=== PATIENT | female | born 1995 | race Caucasian/White ===

== ENCOUNTER 2022-04-15 10:27 | Observation (INO) | payer BC, MEDICAID ==
[~2022-04-15] VITALS: Ht 157.5 cm; Wt 61.2 kg
[2022-04-15] MEDS ORDERED: TERBUTALINE SULFATE 1 MG/ML VIAL ONE (10:41)
[2022-04-15] MEDS ORDERED: TERBUTALINE SULFATE 1 MG/ML VIAL SUBCUT ONE (10:45)
[2022-04-15] MEDS ORDERED: MORPHINE SULFATE 10 MG/ML VIAL IM ONE (10:45)
[2022-04-15 11:27] LABS: CALCIUM 8.1 mg/dL (8.4-11.0); CREATININE 0.66 mg/dL (0.55-1.30)
[2022-04-15 11:31] LABS: ALBUMIN 2.4 g/dL (3.4-4.8); TOTAL BILIRUBIN 0.3 mg/dL (0.0-1.0)
[2022-04-15 11:32] LABS: BASOPHILS % (AUTO) 0.3 % (0.0-2.0); EOSINOPHILS # (AUTO) 0.1 K/uL (0.0-0.4); EOSINOPHILS % (AUTO) 0.4 % (0.0-4.0); HEMOGLOBIN 11.6 g/dL (12.0-16.0); LYMPHOCYTES # (AUTO) 4.1 K/uL (1.0-5.5); LYMPHOCYTES % (AUTO) 25.7 % (20.5-51.5); MEAN CORPUSCULAR HEMOGLOBIN 31 pg (27-31); MEAN CORPUSCULAR HGB CONC 33 % (32-36); MEAN CORPUSCULAR VOLUME 94 fL (79.0-98.0); MONOCYTES # (AUTO) 0.8 K/uL (0.0-1.0); NEUTROPHILS # (AUTO) 10.8 K/uL (1.8-7.7); NEUTROPHILS % (AUTO) 68.6 % (40.0-70.0); PLATELET COUNT (AUTO) 340 K/uL (130-430); RED BLOOD CELL COUNT(AUTO) 3.74 MIL/uL (4.2-6.2); RED CELL DISTRIBUTION WIDTH 13.6 % (9.0-15.0); WHITE BLOOD COUNT (AUTO) 15.8 K/uL (4.8-10.8)
[2022-04-15 11:54] LABS: BILIRUBIN,URINE NEGATIVE (NEGATIVE); BLOOD, URINE NEGATIVE (NEGATIVE); COLOR,URINE YELLOW (YELLOW); GLUCOSE,URINE NEGATIVE (NEGATIVE); KETONES,URINE NEGATIVE (NEGATIVE); LEUKOCYTE ESTERASE ,URINE 3+ (NEGATIVE); NITRITE, URINE NEGATIVE (NEGATIVE); PROTEIN URINE NEGATIVE (NEGATIVE); UROBILINOGEN,URINE 0.2 (0.2-1.0)
[2022-04-15] MEDS: LR 500 ML IV SCH ×2 (11:54→19:52)
[2022-04-15 11:59] LABS: CLARITY/URINE HAZY (CLEAR)
[2022-04-15] MEDS ORDERED: ONDANSETRON HCL 4 MG/2 ML VIAL ONE (12:08)
[2022-04-15 12:45] LABS: BACTERIA,URINE MODERATE /HPF (None Seen); MUCUS,URINE 2+ /LPF (None Seen)
[2022-04-15] MEDS ORDERED: ceFAZolin SODIUM 2 GM VIAL ONE (13:17)
[2022-04-15] MEDS ORDERED: ceFAZolin SODIUM 2 GM in D5W 100 ML IV ONE (13:30)
[2022-04-15] MEDS ORDERED: NIFEdipine (O.B. USE ONLY) 10 MG CAPSULE PO SCH (16:00)
[2022-04-15] MEDS: NIFEdipine (O.B. USE ONLY) 10 MG CAPSULE PO SCH ×3 (16:05→23:53)
[2022-04-15] MEDS ORDERED: METOCLOPRAMIDE HCL 10 MG/2 ML VIAL IVP SCH (18:00)
[2022-04-15] MEDS: ACETAMINOPHEN 325 MG TABLET PO PRN (18:05)
[2022-04-15] MEDS: CEFAZOLIN 1 GM IVPB PREMIX 50 ML IV SCH (21:13)
[2022-04-15] MEDS ORDERED: ceFAZolin SODIUM 1 GM in D5W 100 ML IV SCH (22:00)
[2022-04-16] MEDS: ONDANSETRON HCL 4 MG/2 ML VIAL IVP PRN ×2 (01:59→09:38)
[2022-04-16] MEDS: ACETAMINOPHEN 325 MG TABLET PO PRN ×2 (02:07→10:21)
[2022-04-16] MEDS: NIFEdipine (O.B. USE ONLY) 10 MG CAPSULE PO SCH ×5 (04:11→19:38)
[2022-04-16] MEDS: CEFAZOLIN 1 GM IVPB PREMIX 50 ML IV SCH ×2 (04:11→14:08)
[2022-04-16] MEDS: LR 500 ML IV SCH (06:14)
[2022-04-16 08:07] LABS: BILIRUBIN,URINE NEGATIVE (NEGATIVE); BLOOD, URINE NEGATIVE (NEGATIVE); CLARITY/URINE CLEAR (CLEAR); COLOR,URINE YELLOW (YELLOW); GLUCOSE,URINE NEGATIVE (NEGATIVE); KETONES,URINE NEGATIVE (NEGATIVE); LEUKOCYTE ESTERASE ,URINE 1+ (NEGATIVE); NITRITE, URINE NEGATIVE (NEGATIVE); PROTEIN URINE NEGATIVE (NEGATIVE); UROBILINOGEN,URINE 0.2 (0.2-1.0)
[2022-04-16 10:52] LABS: BACTERIA,URINE RARE /HPF (None Seen); RBC,URINE 0-3 /HPF (0-3)
[2022-04-16] MEDS ORDERED: BETAMET ACET/BETAMET NA PH 30 MG/5 ML VIAL IM SCH (18:30)
== END 2022-04-16 19:50 | disposition home or self-care (01) ==
LOC: SPU 10:27
PROVIDERS: ADMIT Specialist; ATTEND Specialist
DX: O62.9 Abnormality of forces of labor, unspecified (principal); O21.2 Late vomiting of pregnancy; Z3A.32 32 weeks gestation of pregnancy
CPT/HCPCS: 96361; 96365; 96366 ×2; 96372 ×2; 80053; 81000 ×2; 85025; 87086; 36415; 96375; 96376; 76815; J0690 ×2; J2405 ×2; J3105; J2270; J7060; J7120 ×2; G0378 ×2; G0379; J7030; J0702

== ENCOUNTER 2022-04-17 09:51 | Observation (INO) | payer BC, MEDICAID ==
[~2022-04-17] VITALS: Ht 157.5 cm; Wt 61.2 kg
[2022-04-17] MEDS ORDERED: D5LR 1,000 ML IV SCH (10:30)
[2022-04-17] MEDS ORDERED: METOCLOPRAMIDE HCL 10 MG/2 ML VIAL IVP ONE (10:30)
[2022-04-17] MEDS ORDERED: MORPHINE SULFATE 10 MG/ML VIAL IVP ONE ×2 (10:30→18:15)
[2022-04-17] MEDS: NIFEdipine (O.B. USE ONLY) 10 MG CAPSULE PO SCH ×4 (11:20→23:27)
[2022-04-17 11:48] LABS: BASOPHILS % (AUTO) 0.1 % (0.0-2.0); HEMATOCRIT 32.5 % (36-48); LYMPHOCYTES # (AUTO) 1.9 K/uL (1.0-5.5); LYMPHOCYTES % (AUTO) 13.6 % (20.5-51.5); MEAN CORPUSCULAR HEMOGLOBIN 32 pg (27-31); MEAN CORPUSCULAR HGB CONC 34 % (32-36); MEAN CORPUSCULAR VOLUME 94 fL (79.0-98.0); MONOCYTES # (AUTO) 0.4 K/uL (0.0-1.0); NEUTROPHILS # (AUTO) 11.7 K/uL (1.8-7.7); NEUTROPHILS % (AUTO) 83.3 % (40.0-70.0); PLATELET COUNT (AUTO) 303 K/uL (130-430); RED BLOOD CELL COUNT(AUTO) 3.46 MIL/uL (4.2-6.2); RED CELL DISTRIBUTION WIDTH 13.7 % (9.0-15.0)
[2022-04-17 11:51] LABS: CALCIUM 8.1 mg/dL (8.4-11.0); CREATININE 0.68 mg/dL (0.55-1.30)
[2022-04-17 11:56] LABS: ALBUMIN 2.2 g/dL (3.4-4.8); TOTAL BILIRUBIN 0.4 mg/dL (0.0-1.0)
[2022-04-17] MEDS ORDERED: BETAMET ACET/BETAMET NA PH 30 MG/5 ML VIAL IM ONE (16:15)
[2022-04-17] MEDS ORDERED: ceFAZolin SODIUM 2 GM VIAL ONE (18:16)
[2022-04-17] MEDS: ceFAZolin SODIUM 2 GM in D5W 100 ML IV SCH (18:27)
[2022-04-18] MEDS: ceFAZolin SODIUM 2 GM in D5W 100 ML IV SCH ×2 (02:29→10:33)
[2022-04-18] MEDS: NIFEdipine (O.B. USE ONLY) 10 MG CAPSULE PO SCH ×3 (03:29→13:04)
[2022-04-18] MEDS ORDERED: HYDROcodone/ACETAMIN 5-325 MG TAB (NORCO/ VICODIN) PO ONE (11:00)
[2022-04-18] MEDS ORDERED: METOCLOPRAMIDE HCL 10 MG/2 ML VIAL IVP ONE (11:00)
[2022-04-18] MEDS ORDERED: NALOXONE HCL 0.4 MG/ML AMP (NARCAN) IVP PRN (11:00)
== END 2022-04-18 18:10 | disposition home or self-care (01) ==
LOC: SPU 09:51
PROVIDERS: ADMIT Specialist; ATTEND Specialist
DX: O62.9 Abnormality of forces of labor, unspecified (principal); Z3A.32 32 weeks gestation of pregnancy
CPT/HCPCS: 96365; 96366 ×2; 96372; 96375; 96376 ×2; 80053; 81002; 85025; 36415; 87426; J2765 ×2; J2270; J7120 ×2; J7060; G0378 ×2; J0702

== ENCOUNTER 2022-05-01 09:46 | Observation (INO) | payer BC, MEDICAID ==
[~2022-05-01] VITALS: Ht 157.5 cm; Wt 61.2 kg
[2022-05-01] MEDS ORDERED: TERBUTALINE SULFATE 1 MG/ML VIAL ONE (09:52)
[2022-05-01] MEDS ORDERED: NIFEdipine (O.B. USE ONLY) 10 MG CAPSULE PO ONE ×4 (09:59→10:46)
[2022-05-01] MEDS ORDERED: ONDANSETRON HCL 4 MG/2 ML VIAL ONE (10:11)
[2022-05-01] MEDS ORDERED: CEFAZOLIN SOD 2 GM in D5W 50 ML IV ONE (10:15)
[2022-05-01] MEDS ORDERED: ACETAMINOPHEN I.V. 1000 MG 100 ML IV ONE ×2 (10:15→16:00)
[2022-05-01] MEDS ORDERED: ONDANSETRON HCL 4 MG/2 ML VIAL IVP PRN (10:15)
[2022-05-01] MEDS ORDERED: LR 500 ML IV ONE (10:15)
[2022-05-01] MEDS ORDERED: ceFAZolin SODIUM 2 GM VIAL ONE (10:25)
[2022-05-01 11:55] LABS: BASOPHILS % (AUTO) 0.2 % (0.0-2.0); EOSINOPHILS # (AUTO) 0.1 K/uL (0.0-0.4); EOSINOPHILS % (AUTO) 0.3 % (0.0-4.0); HEMATOCRIT 35.7 % (36-48); HEMOGLOBIN 11.9 g/dL (12.0-16.0); LYMPHOCYTES # (AUTO) 1.3 K/uL (1.0-5.5); MEAN CORPUSCULAR HEMOGLOBIN 32 pg (27-31); MEAN CORPUSCULAR HGB CONC 34 % (32-36); MEAN CORPUSCULAR VOLUME 95 fL (79.0-98.0); MONOCYTES # (AUTO) 0.8 K/uL (0.0-1.0); MONOCYTES % (AUTO) 5.3 % (1.7-9.3); NEUTROPHILS # (AUTO) 13.7 K/uL (1.8-7.7); NEUTROPHILS % (AUTO) 86.2 % (40.0-70.0); PLATELET COUNT (AUTO) 304 K/uL (130-430); RED BLOOD CELL COUNT(AUTO) 3.77 MIL/uL (4.2-6.2); RED CELL DISTRIBUTION WIDTH 13.9 % (9.0-15.0); WHITE BLOOD COUNT (AUTO) 15.9 K/uL (4.8-10.8)
[2022-05-01 11:59] LABS: BILIRUBIN,URINE NEGATIVE (NEGATIVE); BLOOD, URINE NEGATIVE (NEGATIVE); CLARITY/URINE SL CLOUDY (CLEAR); COLOR,URINE YELLOW (YELLOW); GLUCOSE,URINE NEGATIVE (NEGATIVE); KETONES,URINE NEGATIVE (NEGATIVE); LEUKOCYTE ESTERASE ,URINE 2+ (NEGATIVE); NITRITE, URINE NEGATIVE (NEGATIVE); PH,URINE 7.5 (5.0-8.0); PROTEIN URINE NEGATIVE (NEGATIVE); UROBILINOGEN,URINE 0.2 (0.2-1.0)
[2022-05-01 12:19] LABS: ALBUMIN 2.5 g/dL (3.4-4.8); CALCIUM 8.9 mg/dL (8.4-11.0); CREATININE 0.53 mg/dL (0.55-1.30); TOTAL BILIRUBIN 0.3 mg/dL (0.0-1.0)
[2022-05-01] MEDS ORDERED: NALOXONE HCL 0.4 MG/ML AMP (NARCAN) IVP PRN ×2 (12:45→16:00)
[2022-05-01 12:49] LABS: BACTERIA,URINE FEW /HPF (None Seen); RBC,URINE 0-3 /HPF (0-3)
[2022-05-01] MEDS ORDERED: MORPHINE SULFATE 10 MG/ML VIAL IM ONE (13:00)
[2022-05-01 13:20] LABS: BARBITURATE, URINE NEGATIVE (NEG <=200); BENZODIAZEPINE, URINE NEGATIVE (NEG <=150); CANNABINOID, URINE NEGATIVE (NEG <=50); COCAINE, URINE NEGATIVE (NEG <=150); METHAMPHETAMINES SCREEN,URINE NEGATIVE (NEG <=500); URINE AMPHETAMINE NEGATIVE (NEG <=500); URINE METHADONE NEGATIVE (NEG <=200)
[2022-05-01 13:21] LABS: OPIATE, URINE NEGATIVE (NEG <=100); PHENCYCLIDINE SCREEN,URINE NEGATIVE (NEG <=25); UR TRICYCLIC ANTIDEPRESSANTS NEGATIVE (NEG <=300); URINE OXYCODONE SCREEN NEGATIVE (NEG <=100); URINE PROPOXYPHENE SCREEN NEGATIVE (NEG <=300)
[2022-05-01] MEDS ORDERED: TERBUTALINE SULFATE 1 MG/ML VIAL SUBCUT ONE (14:00)
[2022-05-01] MEDS: NIFEdipine (O.B. USE ONLY) 10 MG CAPSULE PO PRN ×2 (14:45→14:47)
[2022-05-01] MEDS ORDERED: HYDROcodone/ACETAMIN 5-325 MG TAB (NORCO/ VICODIN) PO ONE (16:00)
[2022-05-01] MEDS ORDERED: CEFAZOLIN SOD 1 GM in D5W 50 ML IV SCH (16:00)
[2022-05-01] MEDS: ceFAZolin SODIUM 1 GM in D5W 50 ML IV SCH (18:33)
[2022-05-01] MEDS: NIFEdipine (O.B. USE ONLY) 10 MG CAPSULE PO SCH ×2 (19:45→23:47)
[2022-05-01] MEDS ORDERED: ACETAMINOPHEN 325 MG TABLET PO PRN (20:00)
[2022-05-01] MEDS: ACETAMINOPHEN 325 MG TABLET PO PRN (20:20)
[2022-05-01] MEDS: LR 1,000 ML IV SCH (23:48)
[2022-05-02] MEDS: ACETAMINOPHEN 325 MG TABLET PO PRN ×3 (01:28→17:04)
[2022-05-02] MEDS: ceFAZolin SODIUM 1 GM in D5W 50 ML IV SCH ×3 (01:30→17:21)
[2022-05-02] MEDS: LR 1,000 ML IV SCH ×2 (03:58→20:27)
[2022-05-02] MEDS: NIFEdipine (O.B. USE ONLY) 10 MG CAPSULE PO SCH ×6 (03:59→19:52)
[2022-05-02] MEDS: NIFEdipine (O.B. USE ONLY) 10 MG CAPSULE PO PRN (14:04)
[2022-05-03] MEDS: NIFEdipine (O.B. USE ONLY) 10 MG CAPSULE PO SCH ×4 (00:16→16:07)
[2022-05-03] MEDS: ceFAZolin SODIUM 1 GM in D5W 50 ML IV SCH ×3 (01:23→17:21)
[2022-05-03] MEDS: LR 1,000 ML IV SCH ×2 (04:25→12:30)
[2022-05-03] MEDS ORDERED: NIFEdipine (O.B. USE ONLY) 10 MG CAPSULE PO ONE (08:30)
== END 2022-05-03 18:45 | disposition home or self-care (01) ==
LOC: SPU 09:46
PROVIDERS: ADMIT Specialist; ATTEND Specialist
DX: O98.513 Other viral diseases complicating pregnancy, third trimester (principal); U07.1 COVID-19; O60.03 Preterm labor without delivery, third trimester; Z3A.34 34 weeks gestation of pregnancy
CPT/HCPCS: 96361 ×3; 96365; 96366 ×3; 96372; 96376; 80307; 80053; 81000; 85025; 87086; 36415; 96368; 87491; 86592; 87426; J0690 ×3; J2405; J3105; J2270; J7060 ×3; G0378 ×3; J0131; J7120 ×2

== ENCOUNTER 2022-05-12 10:59 | Inpatient (IN) | payer BC, MEDICAID ==
[~2022-05-12] VITALS: Ht 157.5 cm; Wt 61.7 kg
[2022-05-12] MEDS ORDERED: LR 1,000 ML IV ONE (13:00)
[2022-05-12] MEDS ORDERED: TERBUTALINE SULFATE 1 MG/ML VIAL SUBCUT ONE (13:30)
[2022-05-12] MEDS ORDERED: BETAMET ACET/BETAMET NA PH 30 MG/5 ML VIAL IM ONE (16:15)
[2022-05-12] MEDS: NIFEdipine (O.B. USE ONLY) 10 MG CAPSULE PO SCH ×2 (17:10→21:07)
[2022-05-12] MEDS ORDERED: NIFEdipine (O.B. USE ONLY) 10 MG CAPSULE PO PRN (17:30)
[2022-05-12] MEDS ORDERED: TEMAZEPAM 15 MG CAPSULE PO PRN (21:30)
[2022-05-13] MEDS: NIFEdipine (O.B. USE ONLY) 10 MG CAPSULE PO SCH ×2 (01:08→04:49)
[2022-05-13] MEDS ORDERED: ACETAMINOPHEN 325 MG TABLET PO PRN (09:00)
[2022-05-13] MEDS ORDERED: NIFEdipine (O.B. USE ONLY) 10 MG CAPSULE PO ONE (12:45)
[2022-05-13] MEDS ORDERED: NIFEdipine (O.B. USE ONLY) 10 MG CAPSULE PO SCH (14:00)
[2022-05-13] MEDS ORDERED: BETAMET ACET/BETAMET NA PH 30 MG/5 ML VIAL IM ONE (16:43)
[2022-05-13 19:17] VITALS: BP_SYST 91
== END 2022-05-13 20:13 | disposition home or self-care (01) | DRG 833 ==
LOC: SPU 10:59 → OBSVTOIN 05-13 10:45
PROVIDERS: ADMIT Specialist; ATTEND Specialist
DX: O60.03 Preterm labor without delivery, third trimester (principal); Z3A.34 34 weeks gestation of pregnancy
CPT/HCPCS: G0378; J0702; J3105; J7120

== ENCOUNTER 2022-05-19 17:45 | Inpatient (IN) | payer BC, MEDICAID ==
[~2022-05-19] VITALS: Ht 157.5 cm; Wt 61.7 kg
[2022-05-19] MEDS ORDERED: NIFEdipine (O.B. USE ONLY) 10 MG CAPSULE PO ONE (18:21)
[2022-05-19] MEDS: NIFEdipine (O.B. USE ONLY) 10 MG CAPSULE PO SCH ×5 (18:44→22:56)
[2022-05-19 19:00] LABS: BASOPHILS % (AUTO) 0.2 % (0.0-2.0); EOSINOPHILS # (AUTO) 0.1 K/uL (0.0-0.4); EOSINOPHILS % (AUTO) 0.6 % (0.0-4.0); HEMATOCRIT 32.1 % (36-48); HEMOGLOBIN 10.9 g/dL (12.0-16.0); LYMPHOCYTES # (AUTO) 3.5 K/uL (1.0-5.5); MEAN CORPUSCULAR HEMOGLOBIN 32 pg (27-31); MEAN CORPUSCULAR HGB CONC 34 % (32-36); MEAN CORPUSCULAR VOLUME 93 fL (79.0-98.0); MONOCYTES # (AUTO) 0.9 K/uL (0.0-1.0); NEUTROPHILS # (AUTO) 7.7 K/uL (1.8-7.7); NEUTROPHILS % (AUTO) 63.2 % (40.0-70.0); PLATELET COUNT (AUTO) 285 K/uL (130-430); RED BLOOD CELL COUNT(AUTO) 3.45 MIL/uL (4.2-6.2); RED CELL DISTRIBUTION WIDTH 13.6 % (9.0-15.0); WHITE BLOOD COUNT (AUTO) 12.2 K/uL (4.8-10.8)
[2022-05-19] MEDS: LR 1,000 ML IV SCH (19:45)
[2022-05-19] MEDS ORDERED: ONDANSETRON HCL 4 MG/2 ML VIAL IVP PRN (20:45)
[2022-05-19] MEDS: TEMAZEPAM 15 MG CAPSULE PO SCH (22:10)
[2022-05-20] MEDS: LR 1,000 ML IV SCH (02:00)
[2022-05-20] MEDS ORDERED: ACETAMINOPHEN 500 MG TABLET PO PRN (02:15)
[2022-05-20] MEDS: NIFEdipine (O.B. USE ONLY) 10 MG CAPSULE PO SCH ×5 (04:47→21:15)
[2022-05-20] MEDS: TEMAZEPAM 15 MG CAPSULE PO SCH (21:15)
[2022-05-21] MEDS: NIFEdipine (O.B. USE ONLY) 10 MG CAPSULE PO SCH ×5 (01:47→19:59)
[2022-05-21] MEDS: LR 1,000 ML IV SCH ×2 (07:41→23:49)
[2022-05-21 20:06] LABS: FTA-Ab (T PALLIDUM) Non Reactive (Non Reactive)
[2022-05-21] MEDS: TEMAZEPAM 15 MG CAPSULE PO SCH (21:14)
[2022-05-22] MEDS: NIFEdipine (O.B. USE ONLY) 10 MG CAPSULE PO SCH ×5 (00:58→19:02)
[2022-05-22] MEDS: LR 1,000 ML IV SCH ×2 (08:32→19:24)
[2022-05-22] MEDS: TEMAZEPAM 15 MG CAPSULE PO SCH (21:05)
[2022-05-23] MEDS: NIFEdipine (O.B. USE ONLY) 10 MG CAPSULE PO SCH ×3 (00:58→13:33)
[2022-05-23] MEDS: LR 1,000 ML IV SCH ×3 (03:16→20:32)
[2022-05-23] MEDS: TEMAZEPAM 15 MG CAPSULE PO SCH (21:12)
[2022-05-24] MEDS: LR 1,000 ML IV SCH ×2 (05:16→20:05)
[2022-05-24] MEDS: TEMAZEPAM 15 MG CAPSULE PO SCH (21:03)
[2022-05-25 12:07] LABS: HEPATITIS B SURFACE AG Negative (Negative); HEPATITIS C VIRUS AB <0.1 s/co ratio (0.0-0.9)
== END 2022-05-25 18:00 | disposition home or self-care (01) | DRG 833 ==
LOC: SPU 17:45
PROVIDERS: ADMIT Specialist; ATTEND Specialist
DX: O60.03 Preterm labor without delivery, third trimester (principal); O62.0 Primary inadequate contractions; Z3A.36 36 weeks gestation of pregnancy
CPT/HCPCS: 36415; 76805-TC; 76815; 85025; 86592; 86780; 86803; 86886; 86900; 86901; 87340; 87491; 87536; J2405

== ENCOUNTER 2022-05-27 04:55 | Inpatient (IN) | payer BC, MEDICAID, OTHER ==
[~2022-05-27] VITALS: Ht 157.5 cm; Wt 61.7 kg
[2022-05-27] MEDS ORDERED: TEMAZEPAM 7.5 MG CAPSULE PO PRN (11:15)
[2022-05-27] MEDS ORDERED: TEMAZEPAM 15 MG CAPSULE PO PRN (21:00)
[2022-05-27] MEDS: TEMAZEPAM 15 MG CAPSULE PO PRN (21:28)
[2022-05-28] MEDS ORDERED: NALBUPHINE HCL 10 MG/ML AMP IVP PRN (20:00)
[2022-05-28] MEDS ORDERED: LR 1,000 ML IV ONE (20:00)
[2022-05-28] MEDS ORDERED: OXYTOCIN/0.9 % SODIUM CHLORIDE 1,000 ML IV SCH (20:00)
[2022-05-28] MEDS ORDERED: TERBUTALINE SULFATE 1 MG/ML VIAL SUBCUT ONE (20:00)
[2022-05-28] MEDS ORDERED: NALBUPHINE HCL 10 MG/ML AMP IM PRN (20:00)
[2022-05-28 21:13] LABS: BASOPHILS % (AUTO) 0.3 % (0.0-2.0); EOSINOPHILS # (AUTO) 0.1 K/uL (0.0-0.4); EOSINOPHILS % (AUTO) 0.5 % (0.0-4.0); HEMATOCRIT 30.7 % (36-48); HEMOGLOBIN 10.6 g/dL (12.0-16.0); LYMPHOCYTES # (AUTO) 3.7 K/uL (1.0-5.5); LYMPHOCYTES % (AUTO) 30.6 % (20.5-51.5); MEAN CORPUSCULAR HEMOGLOBIN 32 pg (27-31); MEAN CORPUSCULAR HGB CONC 35 % (32-36); MEAN CORPUSCULAR VOLUME 92 fL (79.0-98.0); MONOCYTES # (AUTO) 0.8 K/uL (0.0-1.0); MONOCYTES % (AUTO) 6.8 % (1.7-9.3); NEUTROPHILS # (AUTO) 7.4 K/uL (1.8-7.7); NEUTROPHILS % (AUTO) 61.8 % (40.0-70.0); PLATELET COUNT (AUTO) 238 K/uL (130-430); RED BLOOD CELL COUNT(AUTO) 3.35 MIL/uL (4.2-6.2); RED CELL DISTRIBUTION WIDTH 13.8 % (9.0-15.0)
[2022-05-28] MEDS: TEMAZEPAM 15 MG CAPSULE PO PRN (21:39)
[2022-05-28] MEDS: LR 1,000 ML IV SCH (21:41)
[2022-05-28 22:30] VITALS: BP_SYST 129
[2022-05-29] MEDS: LR 1,000 ML IV SCH (03:24)
[2022-05-29] MEDS ORDERED: AMPICILLIN SODIUM 2 GM in NS 100 ML IV STA (15:17)
[2022-05-29] MEDS ORDERED: AMPICILLIN SODIUM 2 GM VIAL ONE (15:18)
[2022-05-29] MEDS ORDERED: ROPIVACAINE HCL/PF 0.2% 200 ML ONE (15:36)
[2022-05-29] MEDS ORDERED: ONDANSETRON HCL 4 MG/2 ML VIAL IVP PRN ×2 (16:00)
[2022-05-29] MEDS ORDERED: NALOXONE HCL 0.4 MG/ML AMP (NARCAN) IVP PRN ×3 (16:00→19:15)
[2022-05-29] MEDS ORDERED: DIPHENHYDRAMINE INJ 50 MG/ML VIAL IVP PRN ×2 (16:00)
[2022-05-29] MEDS ORDERED: NALBUPHINE HCL 10 MG/ML AMP IVP PRN ×2 (16:00)
[2022-05-29] MEDS ORDERED: LIGHT MINERAL OIL 10 ML VIAL MC ONE ×2 (16:08→18:47)
[2022-05-29] MEDS ORDERED: LIDOCAINE PF 1% 30ML(POUR BTL) INJ ONE ×2 (16:08→18:47)
[2022-05-29] MEDS ORDERED: NALOXONE HCL 0.4 MG/ML AMP (NARCAN) ONE ×2 (16:08→18:47)
[2022-05-29] MEDS ORDERED: LR 1,000 ML IV ONE (16:15)
[2022-05-29] MEDS ORDERED: ePHEDrine sulfate 50 MG/ML VIAL IVP PRN (16:15)
[2022-05-29] MEDS ORDERED: fentaNYL CITRATE/PF 100 MCG/2 ML AMP ONE (16:35)
[2022-05-29] MEDS ORDERED: FENT2mCg/mL-ROPIVA0.2%/NS EPID 200 ML EP ONE (16:35)
[2022-05-29] MEDS ORDERED: AMPICILLIN SODIUM 1 GM VIAL ONE (18:49)
[2022-05-29] MEDS ORDERED: AMPICILLIN SODIUM 1 GM in NS 50 ML IV SCH (19:00)
[2022-05-29] MEDS ORDERED: WITCH HAZEL LEAF 1 MED.PAD MED.PAD TP PRN (19:15)
[2022-05-29] MEDS ORDERED: RHO(D) IMMUNE GLOBULIN/MALTOSE 1500 UNITS/1.3 ML (WINHRO) IM PRN (19:15)
[2022-05-29] MEDS ORDERED: OXYTOCIN/0.9 % SODIUM CHLORIDE 1,000 ML IV SCH (19:15)
[2022-05-29] MEDS ORDERED: HYDROCORTISONE 0.5% CREAM 28.4 GM CREAM.GM. TP PRN (19:15)
[2022-05-29] MEDS ORDERED: DIPHTH,PERTUSS(ACELL),TET VAC 0.5 ML VIAL (Tdap) I.M. PRN (19:15)
[2022-05-29] MEDS ORDERED: OXYCODONE/ACETAMINOPHEN 5-325 TABLET PO PRN (19:15)
[2022-05-29] MEDS ORDERED: MEASLES,MUMPS&RUBELLA VACC/PF 12500 UNIT/0.5 ML VIAL SUBQ PRN (19:15)
[2022-05-29] MEDS ORDERED: OXYTOCIN/0.9 % SODIUM CHLORIDE 1,000 ML IV ONE (19:15)
[2022-05-29] MEDS ORDERED: HYDROcodone/ACETAMIN 5-325 MG TAB (NORCO/ VICODIN) PO PRN (19:15)
[2022-05-29] MEDS ORDERED: METHYLERGONOVINE MALEATE 0.2 MG TABLET PO PRN (19:15)
[2022-05-29] MEDS ORDERED: ANUSOL 1 EA SUPP.RECT (PREPARATION H) RC PRN (19:15)
[2022-05-29] MEDS ORDERED: DERMOPLAST SPRAY TP PRN (19:15)
[2022-05-29] MEDS ORDERED: SENNOSIDES/DOCUSATE SODIUM 1 TAB TABLET(SENOKOT-S) PO SCH (21:00)
[2022-05-29] MEDS ORDERED: TEMAZEPAM 15 MG CAPSULE PO PRN (21:00)
[2022-05-29] MEDS: OXYCODONE/ACETAMINOPHEN 5-325 TABLET PO PRN (23:22)
[2022-05-29] MEDS: IBUPROFEN 600 MG TABLET PO SCH (23:23)
[2022-05-30] MEDS: IBUPROFEN 600 MG TABLET PO SCH ×2 (05:35→12:14)
[2022-05-30 07:11] LABS: BASOPHILS % (AUTO) 0.2 % (0.0-2.0); EOSINOPHILS # (AUTO) 0.1 K/uL (0.0-0.4); EOSINOPHILS % (AUTO) 0.4 % (0.0-4.0); HEMATOCRIT 30.8 % (36-48); HEMOGLOBIN 10.5 g/dL (12.0-16.0); LYMPHOCYTES # (AUTO) 3.3 K/uL (1.0-5.5); LYMPHOCYTES % (AUTO) 16.6 % (20.5-51.5); MEAN CORPUSCULAR HEMOGLOBIN 32 pg (27-31); MEAN CORPUSCULAR HGB CONC 34 % (32-36); MEAN CORPUSCULAR VOLUME 94 fL (79.0-98.0); MONOCYTES % (AUTO) 4.9 % (1.7-9.3); NEUTROPHILS # (AUTO) 15.3 K/uL (1.8-7.7); NEUTROPHILS % (AUTO) 77.9 % (40.0-70.0); PLATELET COUNT (AUTO) 214 K/uL (130-430); RED BLOOD CELL COUNT(AUTO) 3.28 MIL/uL (4.2-6.2); RED CELL DISTRIBUTION WIDTH 14.3 % (9.0-15.0); WHITE BLOOD COUNT (AUTO) 19.7 K/uL (4.8-10.8)
[2022-05-30] MEDS: OXYCODONE/ACETAMINOPHEN 5-325 TABLET PO PRN ×2 (08:46→14:30)
[2022-05-30] MEDS ORDERED: DOCUSATE SODIUM 100 MG CAPSULE PO SCH (09:00)
[2022-05-30] MEDS ORDERED: OXYC-128 PO (13:32)
[2022-06-01 19:06] LABS: FTA-Ab (T PALLIDUM) Non Reactive (Non Reactive)
== END 2022-05-30 18:25 | disposition home or self-care (01) | DRG 806 ==
LOC: OBSVTOIN 04:55 → INTOOBSV 04:55 → SPU 04:55 → OBSVTOIN 05-28 19:47 → SPU 05-29 23:50
PROVIDERS: ADMIT Specialist; ATTEND Specialist
PROC: 10E0XZZ Delivery of Products of Conception, External Approach (ICD-10-PCS; principal; 2022-05-30)
PROC: 3E0R3BZ Introduction of Anesthetic Agent into Spinal Canal, Percutaneous Approach (ICD-10-PCS; 2022-05-30)
PROC: 00HU33Z Insertion of Infusion Device into Spinal Canal, Percutaneous Approach (ICD-10-PCS; 2022-05-30)
DX: O69.81X0 Labor and delivery complicated by cord around neck, without compression, not applicable or unspecified (principal); O71.4 Obstetric high vaginal laceration alone; Z37.0 Single live birth; Z3A.37 37 weeks gestation of pregnancy; Z20.822 Contact with and (suspected) exposure to COVID-19
CPT/HCPCS: 36415; 72040-TC; 76805-TC; 85025; 86592; 86780; 86886; 86900; 86901; 87536; G0378; J0290; J2001; J2310; J2405; J2590; J3010